=== PATIENT | female | born 1945 ===

== ENCOUNTER 2025-05-23 11:20 | Outpatient (AMB) | payer MEDICARE, SELFPAY ==
--- OUTSIDE RECORDS SUMMARY | 2025-05-23 12:51 | XMS_ITS | Clinical Summary ---
Author Organization [facility] Address [address] [address] Phone Care Team Providers Care Supervisor Inventory Merchandising Name Role Phone Jamil Fernando DO Primary Care Provider [phone] Allergies Active Allergy Reactions Criticality Noted Date Comments Modified Tree Tyrosine Adsorbate 02/2025 Medications Multiple Vitamins-Iron (ONE DAILY MULTIVITAMIN/IRO N PO) Take 1 tablet by mouth 1 (one) time each day Active aspirin (ST ESTUARDO) 81 MG EC tablet Take 1 tablet by mouth 1 (one) time each day Active atorvastatin (LIPITOR) 10 MG tablet Take 1 tablet by mouth at bed time Active Biotin 5 MG tablet Take 1 tablet by mouth 1 (one) time each day Active zolpidem (AMBIEN) 5 MG tablet Take 1 tablet by mouth at bed time Active amLODIPine (NORVASC) 5 MG tablet Take 5 mg by mouth 1 (one) time each day 12/24/2023 Active lisinopril (PRINIVIL,ZESTRI L) 30 MG tablet Take 1 tablet (30 mg total) by mouth 1 (one) time each day 90 tablet 3 12/07/2024 6 Active Active Problems Problem Noted Date Diagnosed Date Chronic kidney disease stage 3A 10/15/2022 Overview (10/15/2022): Per chart review meets GFR criteriaFares Contact dermatitis 10/15/2022 Degeneration of lumbar intervertebral disc 10/15 Obese class I 10/15/2022 Patient encounter status 10/15/2022 COVID-19 09/25/2022 Acute nontraumatic kidney injury 10/01/2021 Chronic kidney disease stage 2 10/01/2021 Benign essential hypertension 10/01/2021 Insomnia 04/15/2017 Hyperlipidemia 04/15/2017 Immunizations Immunization Administration Dates Next Due Influenza Whole 08/05/2019 Influenza, Unspecified 07/24/2022,2020,08/01/2019,07/16/2018,08/04/20 16 Moderna SARS-COV-2 02/14/2022,12/30/2020, 021 Pfizer SARS-COV-2 08/07/2021 SARS-CoV-2, Unspecified 08/06/2022 Tdap 04/18/2017 Zoster 08/16/2020 Family History Medical History Relation Comments Diabetes Mother Heart disease Mother Hypertension Mother Kidney disease Mother Heart disease Sibling 1 brother Kidney disease Sibling 2 brother-dialysis Diabetes Sibling 3 brother Hypertension Sibling 4 2 brothers Relation Status Comments Mother Sibling 1 Sibling 2 Sibling 3 Sibling 4 Social History Tobacco Use Types Packs/Day Years Used Date Smoking Tobacco: Never Smokeless Tobacco: Never Tobacco Cessation:Counseling Given: No Alcohol Use Standard Drinks/Week Comments Yes 0 (1 standard drink = 0.6 oz pure alcohol) Alcoholic Drinks/day: Occasional social drink Comments Unknown Sex and Gender Information Value Date Recorded Sex Assigned at Not on file Legal Sex Female 4:45 PM EST Gender Identity Not on file Sexual Orientation Not on file Last Filed Vital Signs Vital Sign Reading Time Taken Comments Blood Pressure 115/72 12/07/2024 12:58 PM EST Pulse 89 12/07/2024 12:58 PM EST Temperature - - Respiratory Rate - - Oxygen Saturation 97% 10/02/2021 2:59 PM EST Inhaled Oxygen Concentration - - Weight 88.5 kg (195 lb) 12/07/2024 12:58 PM EST Height 167.6 cm (5' 6 ) 10/31/2020 12:01 PM EST Body Mass Index 31.47 10/31/2020 12:01 PM EST Plan of Treatment Upcoming Encounters Date Type Department Care Team (Late st Contact Info) Description 12/06/2025 1:00 PM EST Office Visit [facility] [address] [place] [address] Gabino Gentile MD [address] [address] Health Maintenance Due Date Last Done Comments Pneumococcal Vaccine: 50+ Years (1 of 2 - PCV) 1964 Influenza Vaccine (#1) 2025 2, 08/02/2021, 08/05/2019, Additional history exists Hepatitis B Vaccine Aged Out No longe r eligible based on patient's age to complete this topic Insurance Medicare [facility] Medicare [facility] Care Teams Supervisor Inventory Merchandising Relationship Specialty Start Date End Date Jamil Fernando DO [address] [place] [address] PCP - General 10/15/20
--- OUTSIDE RECORDS SUMMARY | 2025-05-23 12:51 | XMS_ITS | Clinical Summary ---
Author Organization [facility] Address [address] [place] [address] Phone Care Team Providers Care Order Control Clerk Blood Bank Name Role Phone Fernando, Jamilkyaw Stephens DO Primary Care Provider Allergies No known active allergies Medications lisinopril (PRINIVIL,ZESTR IL) 10 MG tablet Active oxyCODONE 5 MG immediate release tablet Take 1 tablet (5 mg total) by mouth every 6 (six) hours as needed for severe pain. Pt. may request partial fill 12 tablet 10/23/2017 Active Social History Tobacco Use Types Packs/Day Years Used Date Smoking Tobacco: Never Assessed Education Answer Date Recorded Are you interested in more education? Not on lizabeth e 01/30/2023 Are you concerned about learning? Not on file 01/30/2023 No 01/30/2023 No 01/30/2023 Digital Access Answer Date Recorded No 02/28/2023 No 02/28/2023 No 02/28/2023 Reliable internet access at home? Not on file 02/28/2023 Device with a working camera? Not on file Comments Unknown Sex and Gender Information Value Date Recorded Sex Assigned at Not on file Legal Sex Female 10:07 PM EDT Gender Identity Not on file Sexual Orientation Not on file Last Filed Vital Signs Vital Sign Reading Time Taken Comments Blood Pressure 159/70 10/23/2017 6:36 PM EST Pulse 50 10/23/2017 6:38 PM EST Temperature 36.7 C (98 F) 10/23/2017 3:36 PM EST Respiratory Rate 20 10/23/2017 3:36 PM EST Oxygen Saturation 96% 10/23/2017 6:38 PM EST Inhaled Oxygen Concentration - - Weight - - Height - - Body Mass Index - - Plan of Treatment Health Maintenance Due Date Last Done Comments Adult Td,Tdap Booster 1946 CREATININE LEVEL 1946 LIPID PANEL 1946 POTASSIUM LEVEL 1946 DEPRESSION SCREENING 1958 SMOKING Hx and SMOKELESS TOBACCO SCREENING 12/14/1959 HEPATITIS C SCREENING 1964 PNEUMOCOCCAL VACCINES (50+ years) (1 of 1 - PCV) 1996 OSTEOPOROSIS SCREENING INITI AL (ONE-TIME) 12/14/2011 ZOSTER VACCINES (2 of 2) 10/11/2020 08/16/2020 RSV VACCINE (1 - 1-dose 75+ series) 2021 COVID-19 VACCINE (3 - 2023-2 5 season) 2024 12/30/2020, 12/02/2020 HEPATITIS A VACCINES Aged Out No long er eligible based on patient's age to complete this topic HIB VACCINES Aged Out No longer eligi ble based on patient's age to complete this topic MENINGOCOCCAL VACCINES (ACWY) Aged Out No longer eligible based on patient's age to complete this topic MENINGOCOCCAL VACCINES (B) Aged Out N o longer eligible based on patient's age to complete this topic Medical Devices Not on file [place] [address] [place] [address] MEDEX SUPPLEMENT MEDICARE PART A & B [employer] MEDEX SUPPLEMENT MEDICARE PART A & B [employer] MEDEX SUPPLEMENT MEDICARE PART A & B [employer] MEDEX SUPPLEMENT MEDICARE PART A & B [employer] MEDEX SUPPLEMENT MEDICARE PART A & B [employer] MEDEX SUPPLEMENT MEDICARE PART A & B [employer] MEDEX SUPPLEMENT MEDICARE PART A & B [employer] MEDEX SUPPLEMENT MEDICARE PART A & B [facility] MEDEX SUPPLEMENT MEDICARE PART A & B Care Teams Order Control Clerk Blood Bank Relationship Specialty Start Date End Date Jamil Fernando DO 24 [facility] [place] [address] PCP - General Family Medicine 10/23/17 Additional Source Comments The information contained in this document represents components of the legal health record. It is not the complete legal health record.[facility]
== END 2025-05-23 11:23 | disposition home or self-care (01) ==
LOC: HO.HMGAL 11:20
PROVIDERS: PCP Family Medicine; Visit Provider Registered Nurse Emergency
DX: J30.89 Other allergic rhinitis (principal)
CPT/HCPCS: 95117; 95165

== ENCOUNTER 2025-05-31 14:33 | Outpatient (AMB) | payer MEDICARE, SELFPAY ==
--- OUTSIDE RECORDS SUMMARY | 2025-05-31 15:31 | XMS_ITS | Clinical Summary ---
Author Organization [facility] Address [address] [place] [address] Phone Care Team Providers Care Certified Endoscopy Technician Name Role Phone Fernando, Jamilkyaw Stephens DO [...] topic Medical Devices Not on file [place] [address] MEDEX SUPPLEMENT MEDICARE PART A & B [employer] MEDEX SUPPLEMENT MEDICARE PART A & B Member Subscriber Plan / Payer (Ef fective 2012-Present) Name:Arelis Luke Member ID:[id number] Relation to Subscriber:Self Name:Carolina Luken Subscriber ID:[id number] Payer ID:[id number] Group ID:Not on file Type:Medicare Address: [email or web address] [address] [place] [address] [employer] MEDEX SUPPLEMENT MEDICARE PART A & B Member Subscriber Plan / Payer ( fective 2012-Present) Name:Carolina Luken Member ID:[id number] Relation to Subscriber:Self Name:Carolina Luken Subscriber ID:[id number] Payer ID:[id number] Group ID:Not on file Type:Medicare Address: [email or web address] [address] [place] [address] [employer] MEDEX SUPPLEMENT MEDICARE PART A & B Member Subscriber Plan / Payer ( fective 2012-Present) Name:Arelis Luke Member ID:[id number] Relation to Subscriber:Self Name:Carolina Luken Subscriber ID:[id number] Payer ID:[id number] Group ID:Not on file Type:Medicare Address: [email or web address] [address] [place] [address] [employer] MEDEX SUPPLEMENT MEDICARE PART A & B Member Subscriber Plan / Payer (Ef fective 2012-Present) Name:May Lukelyn Member ID:[id number] Relation to Subscriber:Self Name:KirkMay grissomlyn Subscriber ID:[id number] Payer ID:[id number] Group ID:Not on file Type:Medicare Address: [email or web address] [address] [place] [address] [employer] MEDEX SUPPLEMENT MEDICARE PART A & B Member Subscriber Plan / Payer (Ef fective 2012-Present) Name:Arelis Luke Member ID:[id number] Relation to Subscriber:Self Name:Arelis Luke Subscriber ID:[id number] Payer ID:[id number] Group ID:Not on file Type:Medicare Address: [email or web address] [address] [place] [address] [employer] MEDEX SUPPLEMENT MEDICARE PART A & B [employer] MEDEX SUPPLEMENT MEDICARE PART A & B Member Subscriber Plan / Payer ( fective 2012-Present) Name:Arelis Luke Member ID:[id number] Relation to Subscriber:Self Name:Arelis Luke Subscriber ID:[id number] Payer ID:[id number] Group ID:Not on file Type:Medicare Address: [email or web address] [address] [place] [address] [facility] MEDEX SUPPLEMENT MEDICARE PART A & B Member Subscriber Plan / Payer (Ef fective 2012-Present) Name:KirkMay grissomlyn Member ID:[id number] Relation to Subscriber:Self Name:KirkCarolina grissomn Subscriber ID:[id number] Payer ID:[id number] Group ID:Not on file Type:Medicare Address: [email or web address] [address] [place] [address] Care Teams Certified Endoscopy Technician Relationship Specialty Start Date End Date Jamil Fernando DO 24 [facility] [place] [address] PCP - General Family Medicine 10/23/17 Additional Source Comments The information contained in this document represents components of the legal health record. It is not the complete legal health record.[facility]
--- OUTSIDE RECORDS SUMMARY | 2025-05-31 15:31 | XMS_ITS | Clinical Summary ---
Author Organization [facility] Address [address] [address] Phone Care Team Providers Care Rock Breaker Name Role Phone Jamil Fernando DO Primary Care Provider [phone] Allergies Active Allergy Reactions Criticality Noted Date [...] Visit [facility] [address] [place] [address] Gabino Gentile MD [address] [address] Health Maintenance Due Date Last Done Comments Pneumococcal Vaccine: 50+ Years (1 of 2 - PCV) 1964 Influenza Vaccine (#1) 2025 2, 08/02/2021, 08/05/2019, Additional history exists Hepatitis B Vaccine Aged Out No longe r eligible based on patient's age to complete this topic Insurance Medicare [facility] Medicare [facility] Care Teams Rock Breaker Relationship Specialty Start Date End Date Jamil Fernando DO [address] [place] [address] PCP - General 10/15/20
== END 2025-05-31 14:45 | disposition home or self-care (01) ==
LOC: HO.HMGAL 14:33
PROVIDERS: PCP Family Medicine; Visit Provider Registered Nurse Emergency
DX: J30.89 Other allergic rhinitis (principal)
CPT/HCPCS: 95117; 95165

== ENCOUNTER 2025-06-07 11:04 | Outpatient (AMB) | payer MEDICARE, SELFPAY ==
--- OUTSIDE RECORDS SUMMARY | 2025-06-07 13:36 | XMS_ITS | Clinical Summary ---
Author Organization [facility] Address [address] [address] Phone Care Team Providers Care Geek Squad Agent Name Role Phone Jamil Fernando DO Primary Care Provider [phone] Allergies Active Allergy Reactions Criticality Noted Date [...] [facility] [address] [place] [address] Gabino Gentile MD [address] [address] Health Maintenance Due Date Last Done Comments Pneumococcal Vaccine: 50+ Years (1 of 2 - PCV) 1964 Influenza Vaccine (#1) 2025 2, 08/02/2021, 08/05/2019, Additional history exists Hepatitis B Vaccine Aged Out No longe r eligible based on patient's age to complete this topic Insurance Medicare [facility] Medicare [facility] Care Teams Geek Squad Agent Relationship Specialty Start Date End Date Jamil Fernando DO [address] [place] [address] PCP - General 10/15/20
--- OUTSIDE RECORDS SUMMARY | 2025-06-07 13:36 | XMS_ITS | Clinical Summary ---
Author Organization [facility] Address [address] [place] [address] Phone Care Team Providers Care Interpersonal Communications Professor Name Role Phone Fernando, Jamilkyaw Stephens DO [...] VACCINE (1 - 1-dose 75+ series) 2021 INFLUENZA VACCINE (#1) 2025 9, 07/16/2018, 08/04/2016 COVID-19 VACCINE (3 - 2024-2 6 season) 2025 12/30/2020, 12/02/2020 HEPATITIS A VACCINES Aged Out [...] topic Medical Devices Not on file Insurance [employer] MEDEX SUPPLEMENT MEDICARE PART A & B [employer] MEDEX SUPPLEMENT MEDICARE PART A & B [employer] MEDEX SUPPLEMENT MEDICARE PART A & B [facility] MEDEX SUPPLEMENT MEDICARE PART A & B [employer] MEDEX SUPPLEMENT MEDICARE PART A & B [employer] MEDEX SUPPLEMENT MEDICARE PART A & B [employer] CROSS MEDEX SUPPLEMENT MEDICARE PART A & B Member Subscriber Plan / Payer ( fective 2012-) Name:Arelis Luke Member ID:[id number] Relation to Subscriber:Self Name:Arelis Luke Subscriber ID:[id number] Payer ID:[id number] Group ID:Not on file Type:Medicare Address[facility] [address] [place] [address] [employer] MEDEX SUPPLEMENT MEDICARE PART A & B [employer] MEDEX SUPPLEMENT MEDICARE PART A & B Care Teams Interpersonal Communications Professor Relationship Specialty Start Date End Date Jamil Fernando DO [address] [facility] [place] [address] PCP - General Family Medicine 10/23/17 Additional Source Comments The information contained in this document represents components of the legal health record. It is not the complete legal health record.[facility]
== END 2025-06-07 12:51 | disposition home or self-care (01) ==
LOC: HO.HMGAL 11:04
PROVIDERS: PCP Family Medicine; Visit Provider Registered Nurse Emergency
DX: J30.89 Other allergic rhinitis (principal)
CPT/HCPCS: 95117; 95165

== ENCOUNTER 2025-06-14 10:59 | Outpatient (AMB) | payer MEDICARE, SELFPAY ==
--- OUTSIDE RECORDS SUMMARY | 2025-06-14 14:00 | XMS_ITS | Clinical Summary ---
Author Organization [facility] Address [address] [place] [address] Phone Care Team Providers Care Conference Producer Name Role Phone Fernando, Jamilkyaw Stephens DO [...] topic Medical Devices Not on file Insurance [place] MEDEX SUPPLEMENT MEDICARE PART A & B [employer] MEDEX SUPPLEMENT MEDICARE PART A & B [employer] MEDEX SUPPLEMENT MEDICARE PART A & B [facility] MEDEX SUPPLEMENT MEDICARE PART A & B [place] [employer] MEDEX SUPPLEMENT MEDICARE PART A & B [employer] MEDEX SUPPLEMENT MEDICARE PART A & B Member Subscriber Plan / Payer (Ef fective 2012-Present) Name:Arelis Luke Member ID:[id number] Relation to Subscriber:Self Name:Arelis Luke Subscriber ID:[id number] Payer ID:[id number] Group ID:Not on file Type:Medicare Address: [employer] [address] [place] [address] [place] [employer] MEDEX SUPPLEMENT Member Subscriber Plan / Payer ( fective 2011-Present) Name:Arelis Luke Relation to Subscriber:Self Name:Arelis Luke Payer ID:[id number] (NAIC) Type:[facility] Address: [place] [address] MEDICARE PART A & B Member Subscriber Plan / Payer ( fective 2012-) Name:Arelis Luke Member ID:[id number] Relation to Subscriber:Self Name:Arelis Luke Subscriber ID:[id number] Payer ID:[id number] Group ID:Not on file Type:Medicare [facility]: [facility] [address] [place] [address] [employer] MEDEX SUPPLEMENT MEDICARE PART A & B [place] [employer] MEDEX SUPPLEMENT MEDICARE PART A & B Care Teams Conference Producer Relationship Specialty Start Date End Date Jamil Fernando DO [address] [facility] [place] [address] PCP - General Family Medicine 10/23/17 Additional Source Comments The information contained in this document represents components of the legal health record. It is not the complete legal health record.[facility]
--- OUTSIDE RECORDS SUMMARY | 2025-06-14 14:00 | XMS_ITS | Clinical Summary ---
Author Organization [facility] Address [address] [address] Phone Care Team Providers Care Staff Training And Development Manager Name Role Phone Jamil Fernando DO Primary Care Provider [phone] Allergies Active Allergy Reactions Criticality Noted Date [...] Visit [facility] [address] [place] [address] Gabino Gentile MD [address] [address] Health Maintenance Due Date Last Done Comments Pneumococcal Vaccine: 50+ Years (1 of 2 - PCV) 1964 Influenza Vaccine (#1) 2025 2, 08/02/2021, 08/05/2019, Additional history exists Hepatitis B Vaccine Aged Out No longe r eligible based on patient's age to complete this topic Insurance Medicare [facility] Medicare [facility] Care Teams Staff Training And Development Manager Relationship Specialty Start Date End Date Jamil Fernando DO [address] [place] [address] PCP - General 10/15/20
== END 2025-06-14 11:12 | disposition home or self-care (01) ==
LOC: HO.HMGAL 10:59
PROVIDERS: PCP Family Medicine; Visit Provider Registered Nurse Emergency
DX: J30.89 Other allergic rhinitis (principal)
CPT/HCPCS: 95117; 95165

== ENCOUNTER 2025-06-19 11:16 | Outpatient (AMB) | payer MEDICARE, SELFPAY ==
--- OUTSIDE RECORDS SUMMARY | 2025-06-19 15:12 | XMS_ITS | Clinical Summary ---
Author Organization [facility] Address [address] [place] [address] Phone Care Team Providers Care Corporate Administrative Assistant Name Role Phone Fernando, Jamilkyaw Stephens DO [...] topic Medical Devices Not on file Insurance [place] [employer] MEDEX SUPPLEMENT MEDICARE PART A & B [employer] MEDEX SUPPLEMENT MEDICARE PART A & B [employer] MEDEX SUPPLEMENT MEDICARE PART A & B [facility] MEDEX SUPPLEMENT MEDICARE PART A & B [place] [employer] MEDEX SUPPLEMENT MEDICARE PART A & B [employer] MEDEX SUPPLEMENT MEDICARE PART A & B [employer] CROSS MEDEX SUPPLEMENT MEDICARE PART A & B [employer] MEDEX SUPPLEMENT MEDICARE PART A & B [employer] CROSS MEDEX SUPPLEMENT MEDICARE PART A & B Care Teams Corporate Administrative Assistant Relationship Specialty Start Date End Date Jamil Fernando DO [address] [facility] [place] [address] PCP - General Family Medicine 10/23/17 Additional Source Comments The information contained in this document represents components of the legal health record. It is not the complete legal health record.[facility]
== END 2025-06-19 11:20 | disposition home or self-care (01) ==
LOC: HO.HMGAL 11:16
PROVIDERS: PCP Family Medicine; Visit Provider Registered Nurse Emergency
DX: J30.89 Other allergic rhinitis (principal)
CPT/HCPCS: 95117; 95165

== ENCOUNTER 2025-06-26 11:46 | Outpatient (AMB) | payer MEDICARE, SELFPAY ==
--- OUTSIDE RECORDS SUMMARY | 2025-06-26 14:30 | XMS_ITS | Clinical Summary ---
Author Organization [facility] Address [address] [place] [address] Phone Care Team Providers Care Anesthesiology Resident Name Role Phone Fernando, Jamilkyaw Stephens DO [...] topic Medical Devices Not on file Insurance [employer] MEDEX SUPPLEMENT MEDICARE PART A & B Member Subscriber Plan / Payer ( fective 2012-Present) Name:Ti Arelis Member ID:[id number] Relation to Subscriber:Self Name:Carolina Luken Subscriber ID:[id number] Payer ID:[id number] Group ID:Not on file Type:Medicare Address: [employer] [address] [place] [address] [employer] MEDEX SUPPLEMENT MEDICARE PART A & B Member Subscriber Plan / Payer ( fective 2012-Present) Name:Arelis Luke Member ID:[id number] Relation to Subscriber:Self Name:TiMayArelis Subscriber ID:[id number] Payer ID:[id number] Group ID:Not on file Type:Medicare Address: [employer] [address] [place] [address] [employer] MEDEX SUPPLEMENT MEDICARE PART A & B [facility] MEDEX SUPPLEMENT MEDICARE PART A & B [employer] MEDEX SUPPLEMENT MEDICARE PART A & B [employer] MEDEX SUPPLEMENT MEDICARE PART A & B [employer] CROSS MEDEX SUPPLEMENT MEDICARE PART A & B Member Subscriber Plan / Payer ( fective 2012-) Name:Arelis Luke Member ID:[id number] Relation to Subscriber:Self Name:Arelis Luke Subscriber ID:[id number] Payer ID:[id number] Group ID:Not on file Type:Medicare Address: [facility] [address] [place] [address] [employer] MEDEX SUPPLEMENT MEDICARE PART A & B [employer] CROSS MEDEX SUPPLEMENT MEDICARE PART A & B Care Teams Anesthesiology Resident Relationship Specialty Start Date End Date Jamil Fernando DO [address] [facility] [place] [address] PCP - General Family Medicine 10/23/17 Additional Source Comments The information contained in this document represents components of the legal health record. It is not the complete legal health record.[facility]
--- OUTSIDE RECORDS SUMMARY | 2025-06-26 14:30 | XMS_ITS | Clinical Summary ---
Author Organization [facility] Address [address] [address] Phone Care Team Providers Care Grey Goods Examiner Name Role Phone Jamil Fernando DO Primary Care Provider [phone] Allergies Active Allergy Reactions Criticality Noted Date [...] Visit [facility] [address] [place] [address] Gabino Gentile MD [address] [address] Health Maintenance Due Date Last Done Comments Pneumococcal Vaccine: 50+ Years (1 of 2 - PCV) 1964 Influenza Vaccine (#1) 2025 2, 08/02/2021, 08/05/2019, Additional history exists Hepatitis B Vaccine Aged Out No longe r eligible based on patient's age to complete this topic Insurance Medicare [facility] Medicare [facility] Care Teams Grey Goods Examiner Relationship Specialty Start Date End Date Jamil Fernando DO [address] [place] [address] PCP - General 10/15/20
== END 2025-06-26 11:52 | disposition home or self-care (01) ==
LOC: HO.HMGAL 11:46
PROVIDERS: PCP Nurse Practitioner; Visit Provider Registered Nurse Emergency
DX: J30.89 Other allergic rhinitis (principal)
CPT/HCPCS: 95117; 95165

== ENCOUNTER 2025-07-19 11:41 | Outpatient (AMB) | payer MEDICARE, SELFPAY ==
--- OUTSIDE RECORDS SUMMARY | 2025-07-19 14:51 | XMS_ITS | Clinical Summary ---
Author Organization [facility] Address [address] [place] [address] Phone Care Team Providers Care Fuel System Maintenance Supervisor Name Role Phone Fernando, Jamilkyaw Stephens DO [...] topic Medical Devices Not on file Insurance [employer] MEDEX SUPPLEMENT MEDICARE PART A & B [employer] MEDEX SUPPLEMENT MEDICARE PART A & B [employer] MEDEX SUPPLEMENT MEDICARE PART A & B [facility] MEDEX SUPPLEMENT MEDICARE PART A & B [employer] MEDEX SUPPLEMENT MEDICARE PART A & B [employer] MEDEX SUPPLEMENT MEDICARE PART A & B [employer] CROSS MEDEX SUPPLEMENT MEDICARE PART A & B [employer] MEDEX SUPPLEMENT MEDICARE PART A & B [employer] CROSS MEDEX SUPPLEMENT MEDICARE PART A & B Care Teams Fuel System Maintenance Supervisor Relationship Specialty Start Date End Date Jamil Fernando DO [address] [facility] [place] [address] PCP - General Family Medicine 10/23/17 Additional Source Comments The information contained in this document represents components of the legal health record. It is not the complete legal health record.[facility]
== END 2025-07-19 11:42 | disposition home or self-care (01) ==
LOC: HO.HMGAL 11:41
PROVIDERS: PCP Nurse Practitioner; Visit Provider Registered Nurse Emergency
DX: J30.89 Other allergic rhinitis (principal)
CPT/HCPCS: 95117; 95165

== ENCOUNTER 2025-08-07 11:29 | Outpatient (AMB) | payer MEDICARE, SELFPAY ==
--- OUTSIDE RECORDS SUMMARY | 2025-08-07 14:35 | XMS_ITS | Clinical Summary ---
Author Organization [facility] Address [address] [place] [phone] Phone Care Team Providers Care Venetian Blind Worker Name Role Phone Fernando, Jamilkyaw Stephens DO [...] topic Medical Devices Not on file Insurance [place] MEDEX SUPPLEMENT MEDICARE PART A & B [employer] MEDEX SUPPLEMENT MEDICARE PART A & B [employer] MEDEX SUPPLEMENT MEDICARE PART A & B Member Subscriber Plan / Payer ( fective 2012-Present) Name:Arelis Luke Member ID:[id number] Relation to Subscriber:Self Name:Arelis Luke Subscriber ID:[id number] Payer ID:[id number] Group ID:Not on file Type:Medicare Address: [employer] [address] [place] [address] [facility] MEDEX SUPPLEMENT MEDICARE PART A & B [place] [employer] MEDEX SUPPLEMENT MEDICARE PART A & B [employer] MEDEX SUPPLEMENT MEDICARE PART A & B [employer] CROSS MEDEX SUPPLEMENT MEDICARE PART A & B [employer] MEDEX SUPPLEMENT MEDICARE PART A & B [employer] CROSS MEDEX SUPPLEMENT MEDICARE PART A & B Care Teams Venetian Blind Worker Relationship Specialty Start Date End Date Jamil Fernando DO [address] [facility] [place] [address] PCP - General Family Medicine 10/23/17 Additional Source Comments The information contained in this document represents components of the legal health record. It is not the complete legal health record.[facility]
== END 2025-08-07 11:29 | disposition home or self-care (01) ==
LOC: HO.HMGAL 11:29
PROVIDERS: PCP Nurse Practitioner; Visit Provider Registered Nurse Emergency
DX: J30.89 Other allergic rhinitis (principal)
CPT/HCPCS: 95117; 95165

== ENCOUNTER 2025-08-14 13:04 | Outpatient (AMB) | payer MEDICARE, SELFPAY ==
--- OUTSIDE RECORDS SUMMARY | 2025-08-14 15:12 | XMS_ITS | Clinical Summary ---
Author Organization [facility] Address [address] [place] [address] Phone Care Team Providers Care Recreational Assistant Name Role Phone Fernando, Jamilkyaw Stephens [...] you interested in more education? Not on lizabeht e 01/30/2023 Are you concerned about learning? [...] topic Medical Devices Not on file Insurance [place] [employer] MEDEX SUPPLEMENT MEDICARE PART A & B Net Trans[employer] Receive MEDEX SUPPLEMENT MEDICARE PART A & B Net [employer] Receive MEDEX SUPPLEMENT MEDICARE PART A & B Member Subscriber Plan / Payer ( fective 2012-Present) Name:Arelis Luke Member ID:[id number] Relation to Subscriber:Self Name:Arelis Luke Subscriber ID:[id number] Payer ID:[id number] Group ID:Not on file Type:Medicare Address: [email or web address] [address] [place] [address] [facility] MEDEX SUPPLEMENT MEDICARE PART A & B [place] [employer] MEDEX SUPPLEMENT MEDICARE PART A & B Net Transmit & Receive MEDEX SUPPLEMENT MEDICARE PART A & B [employer] CROSS MEDEX SUPPLEMENT MEDICARE PART A & B Member Subscriber Plan / Payer ( fective 2012-) Name:Arelis Luke Member ID:[id number] Relation to Subscriber:Self Name:Arelis Luke Subscriber ID:[id number] Payer ID:[id number] Group ID:Not on file Type:Medicare [facility] [address] [place] [address] Net Transmit & Receive MEDEX SUPPLEMENT MEDICARE PART A & B [employer] CROSS MEDEX SUPPLEMENT MEDICARE PART A & B Care Teams Recreational Assistant Relationship Specialty Start Date End Date Jamil Fernando DO [address] [facility] [place] [address] PCP - General Family Medicine 10/23/17 Additional Source Comments The information contained in this document represents components of the legal health record. It is not the complete legal health record.[facility]
--- OUTSIDE RECORDS SUMMARY | 2025-08-14 15:12 | XMS_ITS | Clinical Summary ---
Author Organization [facility] Address [address] [address] Phone Care Team Providers Care Diecast Machine Operator Name Role Phone Jamil Fernando DO Primary Care Provider [phone] Allergies Active Allergy Reactions Criticality Noted Date [...] Visit [facility] [address] [place] [address] Gabino Gentile MD [address] [address] Health Maintenance Due Date Last Done Comments Pneumococcal Vaccine: 50+ Years (1 of 2 - PCV) 1964 Influenza Vaccine (#1) 2025 2, 08/02/2021, 08/05/2019, Additional history exists Hepatitis B Vaccine Aged Out No longe r eligible based on patient's age to complete this topic Insurance Medicare [facility] Medicare [facility] Care Teams Diecast Machine Operator Relationship Specialty Start Date End Date Jamil Fernando DO [address] [place] [address] PCP - General 10/15/20
== END 2025-08-14 13:05 | disposition home or self-care (01) ==
LOC: HO.HMGAL 13:04
PROVIDERS: PCP Nurse Practitioner; Visit Provider Registered Nurse Emergency
DX: J30.89 Other allergic rhinitis (principal)
CPT/HCPCS: 95117; 95165

== ENCOUNTER 2025-08-21 11:27 | Outpatient (AMB) | payer MEDICARE, SELFPAY | END 2025-08-21 11:28 | disposition home or self-care (01) | LOC: HO.HMGAL 11:27 | PROVIDERS: PCP Nurse Practitioner; Visit Provider Registered Nurse Emergency | DX: J30.89 Other allergic rhinitis (principal) | CPT/HCPCS: 95117; 95165 ==

== ENCOUNTER 2025-08-28 14:54 | Outpatient (AMB) | payer MEDICARE, SELFPAY ==
--- OUTSIDE RECORDS SUMMARY | 2025-08-28 19:42 | XMS_ITS | Clinical Summary ---
Author Organization [facility] Address [address] [place] [address] Phone Care Team Providers Care House Sitter Name Role Phone Fernando, Jamilkyaw Stephens DO [...] topic Medical Devices Not on file Insurance [place] MEDEX SUPPLEMENT MEDICARE PART A & B [employer] MEDEX SUPPLEMENT MEDICARE PART A & B Member Subscriber Plan / Payer ( fective 2012-Present) Name:Arelis Luke Member ID:[id number] Relation to Subscriber:Self Name:TiMayArelis Subscriber ID:[id number] Payer ID:[id number] Group ID:Not on file Type:Medicare Address: [employer] [address] [place] [address] [employer] MEDEX SUPPLEMENT MEDICARE PART A & B [facility] MEDEX SUPPLEMENT MEDICARE PART A & B [place] [employer] MEDEX SUPPLEMENT MEDICARE PART A & B [employer] MEDEX SUPPLEMENT MEDICARE PART A & B [employer] CROSS MEDEX SUPPLEMENT MEDICARE PART A & B [employer] MEDEX SUPPLEMENT MEDICARE PART A & B [employer]OSS MEDEX SUPPLEMENT MEDICARE PART A & B Care Teams House Sitter Relationship Specialty Start Date End Date Jamil Fernando DO [address] [facility] [place] [address] PCP - General Family Medicine 10/23/17 Additional Source Comments The information contained in this document represents components of the legal health record. It is not the complete legal health record.[facility]
== END 2025-08-28 14:55 | disposition home or self-care (01) ==
LOC: HO.HMGAL 14:54
PROVIDERS: PCP Nurse Practitioner; Visit Provider Registered Nurse Emergency
DX: J30.89 Other allergic rhinitis (principal)
CPT/HCPCS: 95117; 95165

== ENCOUNTER 2025-09-06 13:50 | Outpatient (AMB) | payer MEDICARE, SELFPAY ==
--- OUTSIDE RECORDS SUMMARY | 2025-09-06 16:33 | XMS_ITS | Clinical Summary ---
Author Organization [facility] Address [address] [place] [address] Phone Care Team Providers Care Metallurgical Technician Name Role Phone Fernando, Jamilkyaw Stephens [...] topic Medical Devices Not on file Insurance [place]OSS MEDEX SUPPLEMENT MEDICARE PART A & B web care [employer] MEDEX SUPPLEMENT MEDICARE PART A & B web care [employer] MEDEX SUPPLEMENT MEDICARE PART A & B [facility] MEDEX SUPPLEMENT MEDICARE PART A & B [place] [employer] MEDEX SUPPLEMENT MEDICARE PART A & B web care [employer] MEDEX SUPPLEMENT MEDICARE PART A & B [employer] CROSS MEDEX SUPPLEMENT MEDICARE PART A & B web care [employer] MEDEX SUPPLEMENT MEDICARE PART A & B [employer] CROSS MEDEX SUPPLEMENT MEDICARE PART A & B Care Teams Metallurgical Technician Relationship Specialty Start Date End Date Jamil Fernando DO [address] [facility] [place] [address] PCP - General Family Medicine 10/23/17 Additional Source Comments The information contained in this document represents components of the legal health record. It is not the complete legal health record.[facility]
== END 2025-09-06 13:56 | disposition home or self-care (01) ==
LOC: HO.HMGAL 13:50
PROVIDERS: PCP Nurse Practitioner; Visit Provider Registered Nurse Emergency
DX: J30.89 Other allergic rhinitis (principal)
CPT/HCPCS: 95117; 95165

== ENCOUNTER 2025-09-18 13:51 | Outpatient (AMB) | payer MEDICARE, SELFPAY ==
--- OUTSIDE RECORDS SUMMARY | 2025-09-18 20:04 | XMS_ITS | Clinical Summary ---
Author Organization [facility] Address [address] [place] [address] Phone Care Team Providers Care Personal Injury Paralegal Name Role Phone Fernando, Jamilkyaw Stephens DO [...] topic Medical Devices Not on file Insurance [place] [employer] MEDEX SUPPLEMENT MEDICARE PART A & B [employer] MEDEX SUPPLEMENT MEDICARE PART A & B [employer] MEDEX SUPPLEMENT MEDICARE PART A & B [facility] MEDEX SUPPLEMENT MEDICARE PART A & B [place] [employer] MEDEX SUPPLEMENT MEDICARE PART A & B [employer] MEDEX SUPPLEMENT MEDICARE PART A & B [employer] MEDEX SUPPLEMENT MEDICARE PART A & B [employer] MEDEX SUPPLEMENT MEDICARE PART A & B [employer] MEDEX SUPPLEMENT MEDICARE PART A & B Care Teams Personal Injury Paralegal Relationship Specialty Start Date End Date Jamil Fernando DO [address] [facility] [place] [address] PCP - General Family Medicine 10/23/17 Additional Source Comments The information contained in this document represents components of the legal health record. It is not the complete legal health record.[facility]
== END 2025-09-18 13:53 | disposition home or self-care (01) ==
LOC: HO.HMGAL 13:51
PROVIDERS: PCP Nurse Practitioner; Visit Provider Registered Nurse Emergency
DX: J30.89 Other allergic rhinitis (principal)
CPT/HCPCS: 95117; 95165